=== PATIENT | female | born 1950 | race Caucasian/White ===

== ENCOUNTER 2017-04-07 08:15 | Outpatient (CLI) | payer MEDICARE | END 2017-04-07 08:16 | disposition home or self-care (01) | LOC: BICULT 08:15 | PROVIDERS: ATTEND Internal Medicine Gastroenterology | DX: R11.0 Nausea (principal) | CPT/HCPCS: 76705 ==

== ENCOUNTER 2020-12-22 14:35 | Emergency (ER) | payer MEDICARE ==
[2020-12-22 15:17] LABS: #Lymphocytes 1.1 thou/uL (1.20-3.40); #Monocytes 0.6 thou/uL (0.11-0.59); #Neutrophils 7.4 thou/uL (1.40-6.50); %Basophils 0.5 % (0.0-1.0); %Eosinophils 0.1 % (0.0-10.0); %Lymphocytes 12.3 % (21.0-51.0); %Monocytes 6.4 % (0.0-10.0); %Neutrophils 80.8 % (42.0-75.0); Hemoglobin 15.1 g/dL (12.0-16.0); Mean Corpuscular HGB CONC 35.1 g/dL (32.0-36.0); Mean Corpuscular Hemoglobin 34.3 pg (27.0-31.0); Mean Corpuscular Volume 97.7 fL (78.0-98.0); Mean Platelet Volume 7.4 fL (7.4-10.4); Platelet Count 217 thou/uL (130-400); RBC Distribution Width 11.7 % (11.5-14.5); Red Blood Cell (RBC) Count 4.41 mill/uL (4.20-5.40); White Blood Cell (WBC) Count 9.1 thou/uL (4.8-10.8)
[2020-12-22 15:39] LABS: ALT (SGPT) 14 U/L (8-55); AST (SGOT) 17 U/L (5-34); Albumin 3.8 g/dL (3.4-4.8); Alkaline Phosphatase 51 U/L (40-110); Anion Gap 14 mmol/L (10-20); BUN (Urea Nitrogen) 11 mg/dL (9.8-20.1); Bilirubin, Total 0.6 mg/dL (0.2-1.2); Calc. Creatinine Clearance 0 mL/min (70-130); Carbon Dioxide 24 mmol/L (23-31); Chloride 103 mmol/L (98-107); Globulin 2.4 g/dL (2.4-3.5); Glucose 100 mg/dL (80-115); Lipase 11 U/L (8-78); Magnesium 1.9 mg/dL (1.6-2.6); Potassium 4.5 mmol/L (3.5-5.1); Protein, Total 6.2 g/dL (5.8-8.1); Sodium 136 mmol/L (136-145)
[2020-12-22 15:54] LABS: Acetaminophen Less than 6.0 mcg/mL (10.0-30.0); Alcohol Less than 10 mg/dL (Less than 10); CK (CPK) 49 U/L (29-168); Salicylate Less than 8.0 mg/dL (15.0-30.0)
[2020-12-22 15:57] LABS: Bilirubin Negative (Negative); Blood, Urine Negative (Negative); Clarity Clear (Clear); Glucose, Urine (Dipstick) Normal (Negative); Ketone, Urine 60 mg/dL (Negative); Leukocyte Negative Leu/uL (Negative); Nitrite Negative (Negative); Protein, Urine (Dipstick) 50 mg/dL (Neg-Trace); RBC/HPF 0-3 HPF (0-3); pH, Urine 5.5 (5.0-9.0)
[2020-12-22 15:58] LABS: Bacteria/HPF None Seen HPF (None Seen); WBC/HPF 0-3 HPF (0-3)
[2020-12-22 16:08] LABS: Amphetamine Not Detected (NotDetected); Barbiturates Screen Not Detected (NotDetected); Benzodiazepine Screen Detected (NotDetected); Cocaine Metabolite Screen Not Detected (NotDetected); Methadone Not Detected (NotDetected); Methamphetamine Not Detected (NotDetected); Opiate Screen Not Detected (NotDetected); Oxycodone Screen Not Detected (NotDetected); Phencyclidine (PCP) Not Detected (NotDetected); THC/Cannabinoid Screen Not Detected (NotDetected); Tricyclic Screen Not Detected (NotDetected)
== END 2020-12-22 17:30 | disposition home or self-care (01) ==
LOC: ERS 14:35
DX: R55 Syncope and collapse (principal); Z79.899 Other long term (current) drug therapy; I10 Essential (primary) hypertension; F17.210 Nicotine dependence, cigarettes, uncomplicated
CPT/HCPCS: 36415; 71045; 80053; 80306; 80307; 81003; 81015; 82550; 83690; 83735; 84443; 84484; 85025; 93005; 94760